=== PATIENT | female | born 1990 | race Caucasian/White ===

== ENCOUNTER 2018-07-19 20:33 | Emergency (ER) | payer MEDICAID ==
[~2018-07-19] VITALS: Ht 172.7 cm; Wt 96.2 kg
[2018-07-19 20:44] VITALS: BP 153/72; Ht 172.7 cm; Wt 96.2 kg
== END 2018-07-19 22:23 | disposition home or self-care (01) ==
LOC: ED 20:33
DX: Z53.21 Procedure and treatment not carried out due to patient leaving prior to being seen by health care provider (principal)

== ENCOUNTER 2018-08-21 13:06 | Emergency (ER) | payer MEDICAID ==
[~2018-08-21] VITALS: Ht 172.7 cm; Wt 96.7 kg
[2018-08-21 13:12] VITALS: Ht 172.7 cm; Wt 96.7 kg
[2018-08-21 14:51] VITALS: BP 123/66
== END 2018-08-21 14:51 | disposition home or self-care (01) ==
LOC: ED 13:06
DX: O26.891 Other specified pregnancy related conditions, first trimester (principal); R04.2 Hemoptysis; G43.909 Migraine, unspecified, not intractable, without status migrainosus; Z3A.01 Less than 8 weeks gestation of pregnancy

== ENCOUNTER 2018-10-27 20:46 | Emergency (ER) | payer BC ==
[~2018-10-27] VITALS: Ht 172.7 cm; Wt 97.1 kg
[2018-10-27 20:54] VITALS: BP 129/80; Ht 172.7 cm; Wt 97.1 kg
== END 2018-10-27 21:34 | disposition left against medical advice (07) ==
LOC: ED 20:46
DX: Z53.21 Procedure and treatment not carried out due to patient leaving prior to being seen by health care provider (principal)